=== PATIENT | female | born 1930 | race Caucasian/White ===

== ENCOUNTER 2018-04-27 17:37 | Emergency (ER) | payer MEDICARE ==
[~2018-04-27] VITALS: Wt 50.8 kg
[~2018-04-27 17:37] MED LIST: ARICEPT10 M1 PO; ARICEPT10 MG PO; ARICEPT5 MG PO; ASPIRIN81 M1 PO; ATIVAN0.5 MG PO; BACTRIM DS 8001 TA1 PO; BRIN20TA PO; CALCIUM; CELEXA PO; CELEXA20 MG PO; CELEXA40 MG PO; COLACE100 MG PO; COUMADIN PO; COUMADIN3 M1 PO; COUMADIN4 M1 PO; COUMADIN4 MG PO; COUMADIN5 M2 PO; CYMBALTA30 MG PO; Coumadin2 MG PO; Coumadin2.5 MG PO; D3; DARVOCET N 1001 TAB PO; DILTIAZEM CD120 MG PO; DILTIAZEM HCL30 MG PO; DILTIAZEM PO; DONEPEZIL HCL10 MG PO; DULOXETINE HCL30 MG PO; ELIQUIS5 M1 PO; EXELON9.5 MG/24 T; FISH OIL; FISH OIL 10001000 MG; FISH OIL 10001000 MG PO; FLAGYL250 MG PO; FLAGYL500 MG PO; FLORASTOR250 MG PO; FOSAMAX; FOSAMAX70 MG PO; GINKGO; HALDOL0.5 MG PO; HCA STOOL SOFT100 MG; HEP-FORTE1 CAP PO; LOVASTATIN; LOVASTATIN10 MG PO; MACROBID100 M1 PO; MEGACE40 MG PO; MEGACE400 MG/10 PO; MIRTAZAPINE15 M2 PO; MULTIVITAMIN; NAMENDA-14 PO; NAMENDA-28 PO; OXYBUTYNIN CHLOR5 MG PO; OYSTER SHELL C1 EAC4 PO; PRAVASTATIN SOD10 MG PO; PREMARIN0.625 M1 PO; PRILOSEC20 M1 PO; PYRIDIUM100 MG PO; SEPTDS PO; STOOL SOFTNER; TAB-A-VITE1 TA1 PO; TORADOL10 MG PO; VITAMIN B; VITAMIN D1000 IU; WARFARIN SODIUM3 MG PO; WARFARIN4 MG PO; ZYVOX600 MG PO; [UNRECOGNIZED DRUG - OTHER]; [UNRECOGNIZED DRUG - REMARK]
[2018-04-27] MEDS ORDERED: SALINE NOSE SPR45 ML NAS (19:18)
== END 2018-04-27 20:17 ==
LOC: ED 17:37
DX: R04.0 Epistaxis (principal); I48.91 Unspecified atrial fibrillation; E78.5 Hyperlipidemia, unspecified; M81.0 Age-related osteoporosis without current pathological fracture; Z79.899 Other long term (current) drug therapy

== ENCOUNTER → 2018-07-30 | Outpatient (CLI) | payer MEDICARE ==
[~2018-07-30] MED LIST changes: +SALINE NOSE SPR45 ML NAS
== END ==
LOC: US 04:02
DX: R31.9 Hematuria, unspecified (principal); Z78.0 Asymptomatic menopausal state

== ENCOUNTER 2018-08-30 11:39 | Emergency (ER) | payer MEDICARE ==
[~2018-08-30] VITALS: Ht 165.1 cm; Wt 65.8 kg
[2018-08-30 12:02] LABS: BASO % 0.3 % (0.0-1.0); EOS % 0.4 % (1.0-4.0); HEMATOCRIT 41.4 % (37.0-47.0); HEMOGLOBIN 13.2 g/dl (12.0-16.0); LYMPH # 1.5 10*3/uL (1.3-4.4); LYMPH % 15.5 % (27.0-41.0); MEAN CELL VOLUME 97.4 fl (81.0-99.0); MEAN CORPUSCULAR HGB 31.1 pg (27.0-31.0); MEAN CORPUSCULAR HGB CONC 31.9 g/dl (33.0-37.0); MEAN PLATELET VOLUME 10.4 fl (9.6-12.3); MONO # 0.9 10*3/uL (0.1-1.0); NEUT # 7.3 10*3/uL (2.3-7.9); NEUT % 74.5 % (47.0-73.0); PLATELET COUNT AUTOMATED 222 10*3/uL (130-400); RED BLOOD COUNT 4.25 10*6/uL (4.10-5.10); RED CELL DISTRI WIDTH 15.8 % (0-14.5); WHITE BLOOD COUNT 9.8 10*3/uL (4.8-10.8)
[2018-08-30 12:18] LABS: ALBUMIN 3.6 gm/dl (3.1-4.5); ALKALINE PHOSPHATASE 101 U/L (45-117); BUN 15 mg/dl (7-24); CHLORIDE 110 mmol/L (98-107); CREATININE 0.96 mg/dL (0.55-1.02); POTASSIUM 4.1 mmol/L (3.5-5.1); SGOT/AST 23 IU/L (3-35); SGPT/ALT 24 U/L (12-78); SODIUM 143 mmol/L (136-145); TOTAL PROTEIN 6.9 gm/dL (6.4-8.2)
[2018-08-30 13:12] LABS: BILIRUBIN NEGATIVE (NEGATIVE); BLOOD NEGATIVE (NEGATIVE); CLARITY SL CLOUDY (CLEAR); COLOR YELLOW (YELLOW); GLUCOSE NEGATIVE (NEGATIVE); KETONE 1+ (NEGATIVE); LEUKO ESTERASE TRACE (NEGATIVE); NITRITE NEGATIVE (NEGATIVE); UROBILINOGEN 0.2 E.U./dl (0.2-1.0)
[2018-08-30 13:39] LABS: BACTERIA 2+; WBC 41-50 wbc/hpf (0-5)
[2018-08-30] MEDS ORDERED: SEPTDS PO (14:11)
== END 2018-08-30 14:36 ==
LOC: ED 11:39
PROVIDERS: Emergency Medicine; Family Medicine
DX: N39.0 Urinary tract infection, site not specified (principal); R41.82 Altered mental status, unspecified; I48.91 Unspecified atrial fibrillation; E78.5 Hyperlipidemia, unspecified; M81.0 Age-related osteoporosis without current pathological fracture; F03.90 Unspecified dementia, unspecified severity, without behavioral disturbance, psychotic disturbance, mood disturbance, and anxiety; Z79.899 Other long term (current) drug therapy

== ENCOUNTER 2018-12-30 14:57 | Emergency (ER) | payer MEDICARE ==
[~2018-12-30] VITALS: Ht 154.9 cm; Wt 49.9 kg
== END 2018-12-30 16:29 | disposition other institution (70) ==
LOC: ED 14:57
DX: R04.0 Epistaxis (principal); I48.91 Unspecified atrial fibrillation; I25.10 Atherosclerotic heart disease of native coronary artery without angina pectoris; I10 Essential (primary) hypertension; Z79.2 Long term (current) use of antibiotics; Z79.899 Other long term (current) drug therapy

== ENCOUNTER 2019-05-17 18:08 | Inpatient (IN) | payer MEDICARE ==
[~2019-05-17] VITALS: Ht 154.9 cm; Wt 40.0 kg
[2019-05-17 18:09] VITALS: BP 145/82
[2019-05-17 19:06] LABS: BASO % 0.6 % (0.0-1.0); EOS % 0.4 % (1.0-4.0); HEMATOCRIT 33.7 % (37.0-47.0); HEMOGLOBIN 10.8 g/dl (12.0-16.0); LYMPH # 1.8 10*3/uL (1.3-4.4); LYMPH % 26.5 % (27.0-41.0); MEAN CORPUSCULAR HGB 30.8 pg (27.0-31.0); MEAN PLATELET VOLUME 10.2 fl (9.6-12.3); MONO # 0.9 10*3/uL (0.1-1.0); MONO % 13.6 % (3.0-9.0); NEUT % 58.8 % (47.0-73.0); PLATELET COUNT AUTOMATED 181 10*3/uL (130-400); RED BLOOD COUNT 3.51 10*6/uL (4.10-5.10); RED CELL DISTRI WIDTH 18.6 % (0-14.5); WHITE BLOOD COUNT 6.8 10*3/uL (4.8-10.8)
[2019-05-17 19:17] LABS: ACT PARTIAL THROMBO TIME 25.2 SECONDS (20.0-32.1); INTERNATIONAL NORM RATIO 1.1 (2.0-3.5)
--- NOTE | 2019-05-17 19:17 | NUR ---
REPORT RECEIVED FROM JAILENE
[2019-05-17 19:22] LABS: ALBUMIN 3.3 gm/dl (3.1-4.5); CREATININE 1.13 mg/dL (0.55-1.02); POTASSIUM 3.7 mmol/L (3.5-5.1); TOTAL PROTEIN 6.1 gm/dL (6.4-8.2)
[2019-05-17 19:23] LABS: TROPONIN I 0.017 ng/ml (<0.045)
[2019-05-17 20:27] VITALS: BP 133/76
--- NOTE | 2019-05-17 20:54 | NUR ---
A 88, admitted to , under the services of MONIE Becerril MD with a diagnosis of GENERALIZED WEAKNESS. Chief complaint is WEAKNESS. Patient arrived via bed from ER. Monitor applied. Initial assessment completed. Vital signs taken and recorded. MONIE BECERRIL MD notified of admission to the unit. Orders received. See assessment for past medical history, medications and allergies. Patient and/or family oriented to unit. [address] visitation policy reviewed. Clothing/patient valuable form completed. MATT PHAM
[2019-05-17] MEDS ORDERED: CARVEDILOL3.125 MG PO (21:01)
[2019-05-17] MEDS ORDERED: VITAMIN D5000 UNI1 PO (21:02)
[2019-05-17] MEDS ORDERED: MEGACE 40400 MG/10 PO (21:06)
[2019-05-17] MEDS ORDERED: TYLENOL325 M1 PO (21:07)
[2019-05-17] MEDS ORDERED: RIVASTIGMINE TAR3 M1 PO (21:07)
[2019-05-17] MEDS ORDERED: MILK OF MA400 MG/5 M PO (21:09)
--- NOTE | 2019-05-17 21:15 | NUR ---
DR. SCOTT NOTIFIED OF COMPLETE MED REC.
[2019-05-17 21:26] LABS: BILIRUBIN NEGATIVE (NEGATIVE); BLOOD TRACE-LYSED (NEGATIVE); CLARITY CLEAR (CLEAR); COLOR YELLOW (YELLOW); GLUCOSE NEGATIVE (NEGATIVE); KETONE NEGATIVE (NEGATIVE); LEUKO ESTERASE 1+ (NEGATIVE); NITRITE NEGATIVE (NEGATIVE); UROBILINOGEN 0.2 E.U./dl (0.2-1.0)
[2019-05-17 21:42] LABS: BACTERIA 4+; EPITHELIAL CELLS 0-2; WBC 31-40 wbc/hpf (0-5)
[2019-05-18] VITALS: BP 156/62
--- NOTE | 2019-05-18 06:31 | NUR ---
STACY GREEN [id number] Please refer to the physician's history and physical for past medical history, comorbid conditions, and allergies. Diagnosis: GENERALIZED WEAKNESS Angus Score: 15,AT RISK WOUND DESCRIPTIONS: Entire buttocks is red and blanchable at time of assessment. No open areas noted at time of assessment. No drainage noted at time of assessment. Bilateral heels are red and blanchable at time of assessment. No open areas at time of assessment. No drainage noted at time of assessment. Surface the patient is resting on: Isoflex SKIN PREVENTION RECOMMENDATION: 1. Pressure redistribution support surface as appropriate 2. Elevate heels 3. Remove boots/TEDS every shift and reapply 4. Head of bed 30 degrees as tolerated 5. Assess nutrition and hydration 6. Manage moisture 7. Avoid the use of containment devices while in bed 8. Use absorptive products on surfaces limit layers of linens on bed 9. Turn and reposition every 1-2 hours in bed and every 1 hour in chair as tolerated 10. Weight shifts every 15 minutes while up in chair 11. Offloading with pillows or device to keep heels elevated off bed 12. Monitor skin at least every shift 13. Inspect under medical devices twice a day WOUND TREATMENT RECOMMENDATIONS: Heel raiser pro boots to bilateral heels while in bed. Wheelchair cushion when oob. Cleanse entire buttocks with soap and water pat dry then apply hydraguard every shift and prn for soiling then apply optifoam gentle for protection.
--- NOTE | 2019-05-18 06:55 | NUR ---
CALL OUT TO DR KENNY. AWAITING CALL BACK.
[2019-05-18 08:00] VITALS: BP 123/78
--- NOTE | 2019-05-18 08:28 | NUR ---
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 -MARY Correa
--- NOTE | 2019-05-18 10:00 | NUR ---
Clip On Sunglasses Assembler in to see patient. She is a LTC resident at [facility]. She gets up and around in a wheelchair. Family at the bedside is concerned about her not getting a diet. Notified Dr. Barber regarding diet order. Awaiting return call. When medically stable she will be discharged to [facility]. social worker aide following.
--- NOTE | 2019-05-18 10:40 | NUR ---
Spoke to Dr. Barber regarding diet order. New orders received for Regular diet. Informed patient and family. Notified nurse.
--- NOTE | 2019-05-18 10:40 | NUR ---
Occupational Therapy evaluation completed on 5 with full eval to follow. Precautions include fall risk,generalized weakness,impaired memory, moderate complexity level 94799 via chart review,testing and evaluation. Recommend OT per POC and return to Ltc upon d/c. Thank you. Evita Ballard OTR/L
[2019-05-18 12:00] VITALS: BP 116/79
[2019-05-18 16:00] VITALS: BP 116/60
--- NOTE | 2019-05-18 16:30 | NUR ---
Nursing screen completed and Occupational Therapy referral received. Thank you. Evita Ballard OTR/L
--- NOTE | 2019-05-18 18:12 | NUR ---
PHYSICAL THERAPY PT EVAL COMPLETED TODAY ON LEVEL 5: FULL EVALUATION TO FOLLOW. RECOMMEND PT WHILE HERE TO ADDRESS DECREASED FUNCTIONAL MOBILITY AND STRENGTH. PATIENT IS A RESIDENT OF [facility] WHERE SHE IS AMBULATORY WITH [facility] WITH STAFF SUPERVISION AND SELF PROPELS W/C ON HER OWN THROUGHOUT FACILITY. PT EVAL IS MODERATE COMPLEXITY: 95516, D.C RECOMMENDATIONS WOULD BE TO RETURN TO [facility] AND BASED ON HOW SHE DOES HERE MAY BENEFIT FROM SHORT TERM SNF TO REGAIN HIGHEST LEVEL OF FUNCTIONAL MOBILTY AND RETURN TO PLOF. THANK YOU FOR REFERRAL BABAK JURADO PT
[2019-05-18 20:00] VITALS: BP 118/53
[2019-05-19] VITALS: BP 111/55
--- NOTE | 2019-05-19 04:06 | NUR ---
Upon discharge recommend patient to follow up for wound care in outpatient setting continue current wound care orders at discharging facility.
[2019-05-19 08:00] VITALS: BP 142/78
--- NOTE | 2019-05-19 08:30 | NUR ---
Mica Inspector in to see patient. No new needs or request at this time. When medically stable she will be discharged to [facility] where she is a LTC resident. transit survey worker following.
[2019-05-19] MEDS ORDERED: CARVEDILOL6.25 MG PO (09:05)
[2019-05-19] MEDS ORDERED: Lanoxin PO (09:05)
[2019-05-19] MEDS ORDERED: CEFUROXIME AXE250 MG PO (09:22)
--- NOTE | 2019-05-19 11:08 | NUR ---
HOUSE PAINTER received notice the patient is being discharged. HOUSE PAINTER spoke with patients daughter who is at the bedside. She stated she would like the patient to be transported via Ambulance. HOUSE PAINTER spoke with [facility]. HOUSE PAINTER reached out to [facility] who stated they would be able to transport the patient at 1pm back to [facility]. HOUSE PAINTER notified [facility] and [facility] about of 1pm pickup. HOUSE PAINTER faxed [facility] updates and discharge orders. -MARY Correa
--- NOTE | 2019-05-19 12:59 | NUR ---
Attempted to call report to [facility], transferred to an answering machine. Call back number left.
--- NOTE | 2019-05-19 13:26 | NUR ---
[facility] here to pepper picker pt. Attempting to call report again to [facility]. Spoke with nurse there and report was given.
--- NOTE | 2019-05-19 13:30 | NUR ---
Discharged in care of [facility]. Daughter present at tn.
== END 2019-05-19 13:30 | DRG 309 ==
LOC: ED 18:08 → EDHOLD 19:35 → 5E 19:35
PROVIDERS: Emergency Medicine; ADMIT Internal Medicine
DX: I48.21 Permanent atrial fibrillation (principal); Z68.1 Body mass index [BMI] 19.9 or less, adult; I10 Essential (primary) hypertension; R62.7 Adult failure to thrive; J44.9 Chronic obstructive pulmonary disease, unspecified; R55 Syncope and collapse; G30.1 Alzheimer's disease with late onset; F02.80 Dementia in other diseases classified elsewhere, unspecified severity, without behavioral disturbance, psychotic disturbance, mood disturbance, and anxiety; F32.9 Major depressive disorder, single episode, unspecified; E78.5 Hyperlipidemia, unspecified; M81.0 Age-related osteoporosis without current pathological fracture; Z87.440 Personal history of urinary (tract) infections; Z82.49 Family history of ischemic heart disease and other diseases of the circulatory system; Z82.0 Family history of epilepsy and other diseases of the nervous system

== ENCOUNTER 2019-06-05 23:16 | Emergency (ER) | payer MEDICARE ==
[~2019-06-05] VITALS: Ht 157.4 cm; Wt 41.1 kg
[~2019-06-05 23:16] MED LIST changes: +CARVEDILOL3.125 MG PO; +CARVEDILOL6.25 MG PO; +CEFUROXIME AXE250 MG PO; +Lanoxin PO; +MEGACE 40400 MG/10 PO; +MILK OF MA400 MG/5 M PO; +RIVASTIGMINE TAR3 M1 PO; +TYLENOL325 M1 PO; +VITAMIN D5000 UNI1 PO
[2019-06-05 23:53] LABS: ACT PARTIAL THROMBO TIME 24.2 SECONDS (20.0-32.1); INTERNATIONAL NORM RATIO 1.1 (2.0-3.5)
[2019-06-05 23:55] LABS: CREATININE 1.22 mg/dL (0.55-1.02); POTASSIUM 3.9 mmol/L (3.5-5.1)
[2019-06-06 00:21] LABS: BASO # 0.1 10*3/uL (0.0-0.1); BASO % 0.7 % (0.0-1.0); EOS # 0.1 10*3/uL (0.0-0.4); EOS % 0.8 % (1.0-4.0); HEMATOCRIT 34.6 % (37.0-47.0); HEMOGLOBIN 10.6 g/dl (12.0-16.0); LYMPH # 1.7 10*3/uL (1.3-4.4); LYMPH % 21.9 % (27.0-41.0); MEAN CELL VOLUME 96.9 fl (81.0-99.0); MEAN CORPUSCULAR HGB 29.7 pg (27.0-31.0); MEAN CORPUSCULAR HGB CONC 30.6 g/dl (33.0-37.0); MEAN PLATELET VOLUME 11.3 fl (9.6-12.3); NEUT # 4.8 10*3/uL (2.3-7.9); NEUT % 62.4 % (47.0-73.0); PLATELET COUNT AUTOMATED 156 10*3/uL (130-400); RED BLOOD COUNT 3.57 10*6/uL (4.10-5.10); RED CELL DISTRI WIDTH 18.2 % (0-14.5); WHITE BLOOD COUNT 7.6 10*3/uL (4.8-10.8)
== END 2019-06-06 02:00 | disposition other institution (70) ==
LOC: ED 23:16
PROVIDERS: Emergency Medicine Emergency Medical Services
DX: R04.0 Epistaxis (principal); E87.0 Hyperosmolality and hypernatremia; I48.91 Unspecified atrial fibrillation; I10 Essential (primary) hypertension; E78.5 Hyperlipidemia, unspecified; M81.0 Age-related osteoporosis without current pathological fracture; I25.10 Atherosclerotic heart disease of native coronary artery without angina pectoris; Z79.899 Other long term (current) drug therapy

== ENCOUNTER 2019-07-13 21:55 | Inpatient (IN) | payer MEDICARE ==
[~2019-07-13] VITALS: Ht 167.6 cm; Wt 41.9 kg
[2019-07-13 22:02] VITALS: BP 131/36
[2019-07-13 22:27] LABS: BASO # 0.1 10*3/uL (0.0-0.1); BASO % 0.5 % (0.0-1.0); EOS # 0.1 10*3/uL (0.0-0.4); EOS % 1.5 % (1.0-4.0); HEMATOCRIT 26.6 % (37.0-47.0); LYMPH # 2.2 10*3/uL (1.3-4.4); LYMPH % 24.2 % (27.0-41.0); MEAN CORPUSCULAR HGB 28.6 pg (27.0-31.0); MEAN CORPUSCULAR HGB CONC 30.1 g/dl (33.0-37.0); MEAN PLATELET VOLUME 11.4 fl (9.6-12.3); MONO # 1.1 10*3/uL (0.1-1.0); MONO % 11.6 % (3.0-9.0); NEUT # 5.7 10*3/uL (2.3-7.9); NEUT % 61.4 % (47.0-73.0); NUCLEATED RED BLOOD CELL 0.3 % (0.0-0.0); PLATELET COUNT AUTOMATED 247 10*3/uL (130-400); RED CELL DISTRI WIDTH 17.8 % (0-14.5); WHITE BLOOD COUNT 9.2 10*3/uL (4.8-10.8)
[2019-07-13 22:38] LABS: ACT PARTIAL THROMBO TIME 22.5 SECONDS (20.0-32.1)
[2019-07-13 22:42] LABS: ALBUMIN 3.1 gm/dl (3.1-4.5); CREATININE 1.46 mg/dL (0.55-1.02); POTASSIUM 5.3 mmol/L (3.5-5.1); TOTAL PROTEIN 6.2 gm/dL (6.4-8.2)
[2019-07-14 00:20] VITALS: BP 149/99
--- NOTE | 2019-07-14 00:20 | NUR ---
DNR-CCA AN 88 YEAR OLD FEMALE, admitted to 5E, under the services of MONIE Becerril MD with a diagnosis of ANEMIA/DEHYDRATION. Chief complaint is EPITAXIS. Patient arrived via stretcher from ER. Monitor applied. Initial assessment completed. Vital signs taken and recorded. MONIE BECERRIL MD notified of admission to the unit. Orders received. See assessment for past medical history, medications and allergies. Patient and/or family oriented to unit. visitation policy reviewed. Clothing/patient valuable form completed. DOMINIC WHITE
--- NOTE | 2019-07-14 00:45 | NUR ---
DR. ONEAL CONTACTED AND ADMISSION ORDERS OBTAINED.
[2019-07-14] MEDS ORDERED: MARINOL5 MG PO (00:59)
[2019-07-14] MEDS ORDERED: DRONABINOL2.5 MG PO (01:01)
[2019-07-14] MEDS ORDERED: LANOXIN250 MCG PO (01:02)
[2019-07-14] MEDS ORDERED: COREG6.25 MG PO (01:23)
[2019-07-14] MEDS ORDERED: VITAMIN D5000 UNI1 PO (01:25)
[2019-07-14] MEDS ORDERED: NASAL SPRAY30 M1 NAS (01:43)
[2019-07-14] MEDS ORDERED: TYLENOL325 M1 PO (01:44)
[2019-07-14] MEDS ORDERED: RIVASTIGMINE TAR3 M1 PO (01:45)
[2019-07-14] MEDS ORDERED: ELIQUIS2.5 M1 PO (01:45)
[2019-07-14] MEDS ORDERED: REMERON15 M2 PO (01:46)
[2019-07-14] MEDS ORDERED: MILK OF MA400 MG/5 M PO (01:46)
[2019-07-14] MEDS ORDERED: OYSTER SHELL C1 EAC4 PO (01:47)
[2019-07-14] MEDS ORDERED: DITROPAN XL5 MG PO (01:47)
[2019-07-14] MEDS ORDERED: ALENDRONATE SOD70 M1 PO (01:49)
[2019-07-14] MEDS ORDERED: PRAVASTATIN SOD10 MG PO (01:49)
[2019-07-14] MEDS ORDERED: CARDIOVID PLUS1 EACH PO (01:51)
[2019-07-14] MEDS ORDERED: PRILOSEC20 M1 PO (01:51)
[2019-07-14] MEDS ORDERED: TAB-A-VITE1 EACH PO (01:51)
[2019-07-14] MEDS ORDERED: NAMENDA-28 PO (01:52)
[2019-07-14 08:00] VITALS: BP 124/54
--- NOTE | 2019-07-14 08:05 | NUR ---
PHYSICAL THERAPY Screen received pt from [facility], please consult Physical Therapy if decline in functional status from baseline, thank you Radha Gallego PT
--- NOTE | 2019-07-14 08:52 | NUR ---
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 -MARY Correa
--- NOTE | 2019-07-14 09:00 | NUR ---
Roll Up Machine Operator in to see patient. She is a LTC resident at [facility]. She gets up and around in a wheelchair. She states she is cold and tired. Covered with blankets. When medically stable she will be discharged to [facility]. hand worker following.
[2019-07-14 10:52] LABS: FERRITIN 15.9 ng/mL (10.0-291.0)
--- NOTE | 2019-07-14 11:54 | NUR ---
Nursing screen receieved and chart reviewed. If patient has a decline in ADLs and functional mobility/transfers, please send OT orders. Thank you. Beena Fung, OTR/L
--- NOTE | 2019-07-14 14:07 | NUR ---
SPEECH PATHOLOGY Nursing screen completed. This dept. will be available if needs arise. There are currently no reports of acute communication or swallowing difficulty. CHASE SAL [facility]-POLE LIFT OPERATOR
[2019-07-14 16:00] VITALS: BP 144/56
[2019-07-14 20:00] VITALS: BP 138/43
[2019-07-15 06:42] LABS: BASO % 0.5 % (0.0-1.0); EOS # 0.2 10*3/uL (0.0-0.4); EOS % 2.3 % (1.0-4.0); HEMATOCRIT 23.9 % (37.0-47.0); HEMOGLOBIN 7.2 g/dl (12.0-16.0); LYMPH # 2.2 10*3/uL (1.3-4.4); LYMPH % 28.1 % (27.0-41.0); MEAN CELL VOLUME 92.3 fl (81.0-99.0); MEAN CORPUSCULAR HGB 27.8 pg (27.0-31.0); MEAN CORPUSCULAR HGB CONC 30.1 g/dl (33.0-37.0); MEAN PLATELET VOLUME 10.9 fl (9.6-12.3); MONO # 1.1 10*3/uL (0.1-1.0); MONO % 13.8 % (3.0-9.0); NEUT # 4.2 10*3/uL (2.3-7.9); NEUT % 54.8 % (47.0-73.0); PLATELET COUNT AUTOMATED 224 10*3/uL (130-400); RED BLOOD COUNT 2.59 10*6/uL (4.10-5.10); RED CELL DISTRI WIDTH 17.5 % (0-14.5); WHITE BLOOD COUNT 7.7 10*3/uL (4.8-10.8)
[2019-07-15 06:59] LABS: CHLORIDE 119 mmol/L (98-107); SODIUM 146 mmol/L (136-145)
[2019-07-15 07:01] LABS: CREATININE 0.89 mg/dL (0.55-1.02)
[2019-07-15 07:04] LABS: BUN 20 mg/dl (7-24); POTASSIUM 4.1 mmol/L (3.5-5.1)
[2019-07-15 08:00] VITALS: BP 140/58
--- NOTE | 2019-07-15 08:15 | NUR ---
Discussed discharge planning with Dr. Barber. Plan is to discharge patient to [facility] today where she is a LTC resident. machine worker following.
[2019-07-15] MEDS ORDERED: FERROUS SULFAT324 M2 PO (08:52)
--- NOTE | 2019-07-15 10:31 | NUR ---
DAUGHTER AT BEDSIDE, AWARE PATIENT GOING BACK TO [facility] TODAY.
--- NOTE | 2019-07-15 11:29 | NUR ---
MAINTAINABILITY ENGINEER was notified of patient being discharged. MAINTAINABILITY ENGINEER spoke with MIKAYLA Porras. MAINTAINABILITY ENGINEER spoke with Mike Chauhan and scheduled a 12:30pm transport for the patient to return to [facility]. MAINTAINABILITY ENGINEER notified [facility]. MAINTAINABILITY ENGINEER spoke with patients daughter at bedside about transport scheduled. MAINTAINABILITY ENGINEER then received notice from MIKAYLA Porras that the patient was experiencing pain and that the patients discharged was on hold. MAINTAINABILITY ENGINEER contacted [place] back and cancelled the transport. MAINTAINABILITY ENGINEER notified [facility] of the change of events. Patients daughter is at bedside still and is aware of the change in events as well. -MARY Correa
[2019-07-15] MEDS ORDERED: COLACE100 MG PO (13:59)
[2019-07-15] MEDS ORDERED: MIRALAX17 GM PO (13:59)
[2019-07-15 16:00] VITALS: BP 139/57
--- NOTE | 2019-07-15 16:36 | NUR ---
CALLED DAUGHTER AND MADE AWARE THAT PATIENT WILL BE DISCHARGED HOME TODAY AT [address]. [address] OF [address] RESULTS AND NO MORE COMPLAIN OF ABDOMINAL PAIN
--- NOTE | 2019-07-15 17:10 | NUR ---
PT PICKED UP BY [facility]. SENT TO [facility] WITH BELONGINGS.
--- NOTE | 2019-07-15 17:13 | NUR ---
REPORT CALLED TO [facility]
--- NOTE | 2019-07-15 17:30 | NUR ---
DISCHARGE INSTRUCTIONS SENT WITH PATIENT TO [facility]
== END 2019-07-15 17:10 | DRG 683 ==
LOC: ED 21:55 → 5E 22:59 → EDHOLD 22:59 → 5E 23:27
PROVIDERS: Physician Assistant; ADMIT Internal Medicine
DX: N17.9 Acute kidney failure, unspecified (principal); I48.21 Permanent atrial fibrillation; Z68.1 Body mass index [BMI] 19.9 or less, adult; R04.0 Epistaxis; E86.0 Dehydration; I10 Essential (primary) hypertension; Z66 Do not resuscitate; Z51.5 Encounter for palliative care; R62.7 Adult failure to thrive; D50.9 Iron deficiency anemia, unspecified; G30.1 Alzheimer's disease with late onset; F02.80 Dementia in other diseases classified elsewhere, unspecified severity, without behavioral disturbance, psychotic disturbance, mood disturbance, and anxiety; E87.5 Hyperkalemia; R00.1 Bradycardia, unspecified; E78.5 Hyperlipidemia, unspecified; M81.0 Age-related osteoporosis without current pathological fracture; Z87.440 Personal history of urinary (tract) infections; Z79.01 Long term (current) use of anticoagulants; Z82.49 Family history of ischemic heart disease and other diseases of the circulatory system; Z82.0 Family history of epilepsy and other diseases of the nervous system

== ENCOUNTER 2019-08-08 11:49 | Emergency (ER) | payer MEDICARE ==
[~2019-08-08 11:49] MED LIST changes: +ALENDRONATE SOD70 M1 PO; +CARDIOVID PLUS1 EACH PO; +COREG6.25 MG PO; +DITROPAN XL5 MG PO; +DRONABINOL2.5 MG PO; +ELIQUIS2.5 M1 PO; +FERROUS SULFAT324 M2 PO; +LANOXIN250 MCG PO; +MARINOL5 MG PO; +MIRALAX17 GM PO; +NASAL SPRAY30 M1 NAS; +REMERON15 M2 PO; +TAB-A-VITE1 EACH PO
[2019-08-08 13:01] LABS: BASO # 0.1 10*3/uL (0.0-0.1); BASO % 0.6 % (0.0-1.0); EOS % 0.5 % (1.0-4.0); HEMATOCRIT 34.5 % (37.0-47.0); HEMOGLOBIN 10.4 g/dl (12.0-16.0); LYMPH # 1.2 10*3/uL (1.3-4.4); MEAN CELL VOLUME 98.6 fl (81.0-99.0); MEAN CORPUSCULAR HGB 29.7 pg (27.0-31.0); MEAN CORPUSCULAR HGB CONC 30.1 g/dl (33.0-37.0); MEAN PLATELET VOLUME 10.1 fl (9.6-12.3); MONO # 0.6 10*3/uL (0.1-1.0); MONO % 7.8 % (3.0-9.0); NEUT # 5.9 10*3/uL (2.3-7.9); NEUT % 75.7 % (47.0-73.0); PLATELET COUNT AUTOMATED 220 10*3/uL (130-400); RED CELL DISTRI WIDTH 21.7 % (0-14.5); WHITE BLOOD COUNT 7.8 10*3/uL (4.8-10.8)
[2019-08-08 13:12] LABS: ACT PARTIAL THROMBO TIME 25.9 SECONDS (20.0-32.1); INTERNATIONAL NORM RATIO 1.1 (2.0-3.5)
[2019-08-08 13:17] LABS: ALBUMIN 3.1 gm/dl (3.1-4.5); ALKALINE PHOSPHATASE 84 U/L (45-117); BUN 18 mg/dl (7-24); CHLORIDE 113 mmol/L (98-107); POTASSIUM 4.1 mmol/L (3.5-5.1); SGOT/AST 21 IU/L (3-35); SGPT/ALT 17 U/L (12-78); SODIUM 145 mmol/L (136-145); TOTAL PROTEIN 6.1 gm/dL (6.4-8.2)
[2019-08-08 15:27] LABS: BILIRUBIN NEGATIVE (NEGATIVE); BLOOD NEGATIVE (NEGATIVE); CLARITY CLEAR (CLEAR); COLOR YELLOW (YELLOW); GLUCOSE NEGATIVE (NEGATIVE); KETONE TRACE (NEGATIVE); LEUKO ESTERASE NEGATIVE (NEGATIVE); NITRITE NEGATIVE (NEGATIVE); PH 6.5 (5.0-9.0); UROBILINOGEN 0.2 E.U./dl (0.2-1.0)
[2019-08-08 15:37] LABS: BACTERIA 1+
== END 2019-08-08 16:17 | disposition home or self-care (01) ==
LOC: ED 11:49
PROVIDERS: Emergency Medicine
DX: R04.0 Epistaxis (principal); K92.1 Melena; R53.1 Weakness; R30.0 Dysuria; I48.91 Unspecified atrial fibrillation; F03.90 Unspecified dementia, unspecified severity, without behavioral disturbance, psychotic disturbance, mood disturbance, and anxiety; I10 Essential (primary) hypertension; I25.10 Atherosclerotic heart disease of native coronary artery without angina pectoris; E78.5 Hyperlipidemia, unspecified; M81.0 Age-related osteoporosis without current pathological fracture; Z79.899 Other long term (current) drug therapy

== ENCOUNTER 2019-08-21 11:50 | Emergency (ER) | payer MEDICARE ==
[~2019-08-21] VITALS: Wt 39.9 kg
[2019-08-21 13:13] LABS: BASO # 0.1 10*3/uL (0.0-0.1); BASO % 0.8 % (0.0-1.0); EOS # 0.1 10*3/uL (0.0-0.4); EOS % 1.7 % (1.0-4.0); HEMATOCRIT 34.2 % (37.0-47.0); HEMOGLOBIN 10.2 g/dl (12.0-16.0); LYMPH # 1.7 10*3/uL (1.3-4.4); LYMPH % 26.3 % (27.0-41.0); MEAN CELL VOLUME 99.7 fl (81.0-99.0); MEAN CORPUSCULAR HGB 29.7 pg (27.0-31.0); MEAN CORPUSCULAR HGB CONC 29.8 g/dl (33.0-37.0); MEAN PLATELET VOLUME 9.7 fl (9.6-12.3); MONO # 0.9 10*3/uL (0.1-1.0); NEUT # 3.8 10*3/uL (2.3-7.9); NEUT % 57.7 % (47.0-73.0); PLATELET COUNT AUTOMATED 189 10*3/uL (130-400); RED BLOOD COUNT 3.43 10*6/uL (4.10-5.10); RED CELL DISTRI WIDTH 21.8 % (0-14.5); WHITE BLOOD COUNT 6.5 10*3/uL (4.8-10.8)
== END 2019-08-21 15:00 | disposition home or self-care (01) ==
LOC: ED 11:50
PROVIDERS: Internal Medicine
DX: R04.0 Epistaxis (principal); R42 Dizziness and giddiness; R41.840 Attention and concentration deficit; I10 Essential (primary) hypertension; I48.91 Unspecified atrial fibrillation; F03.90 Unspecified dementia, unspecified severity, without behavioral disturbance, psychotic disturbance, mood disturbance, and anxiety; E78.5 Hyperlipidemia, unspecified; I25.10 Atherosclerotic heart disease of native coronary artery without angina pectoris; M81.0 Age-related osteoporosis without current pathological fracture; Z79.899 Other long term (current) drug therapy

== ENCOUNTER 2019-09-07 02:07 | Emergency (ER) | payer MEDICARE ==
[~2019-09-07] VITALS: Ht 165.1 cm; Wt 59.0 kg
== END 2019-09-07 02:30 | disposition home or self-care (01) ==
LOC: ED 02:07
DX: R04.0 Epistaxis (principal); I25.10 Atherosclerotic heart disease of native coronary artery without angina pectoris; I10 Essential (primary) hypertension; I48.91 Unspecified atrial fibrillation; E78.5 Hyperlipidemia, unspecified; M81.0 Age-related osteoporosis without current pathological fracture; Z79.899 Other long term (current) drug therapy

== ENCOUNTER 2019-09-30 07:34 | Emergency (ER) | payer MEDICARE ==
[~2019-09-30] VITALS: Ht 154.9 cm; Wt 49.0 kg
[2019-09-30 08:13] LABS: BASO # 0.1 10*3/uL (0.0-0.1); BASO % 0.7 % (0.0-1.0); EOS # 0.1 10*3/uL (0.0-0.4); HEMATOCRIT 29.3 % (37.0-47.0); HEMOGLOBIN 8.9 g/dl (12.0-16.0); LYMPH # 1.7 10*3/uL (1.3-4.4); LYMPH % 24.1 % (27.0-41.0); MEAN CELL VOLUME 102.1 fl (81.0-99.0); MEAN CORPUSCULAR HGB CONC 30.4 g/dl (33.0-37.0); MEAN PLATELET VOLUME 10.4 fl (9.6-12.3); MONO % 14.6 % (3.0-9.0); NEUT % 58.3 % (47.0-73.0); PLATELET COUNT AUTOMATED 223 10*3/uL (130-400); RED BLOOD COUNT 2.87 10*6/uL (4.10-5.10); RED CELL DISTRI WIDTH 20.1 % (0-14.5); WHITE BLOOD COUNT 6.9 10*3/uL (4.8-10.8)
[2019-09-30 08:23] LABS: ACT PARTIAL THROMBO TIME 24.5 SECONDS (20.0-32.1); INTERNATIONAL NORM RATIO 1.1 (2.0-3.5)
[2019-09-30 08:29] LABS: ALBUMIN 2.9 gm/dl (3.1-4.5); ALKALINE PHOSPHATASE 97 U/L (45-117); BUN 22 mg/dl (7-24); CHLORIDE 113 mmol/L (98-107); CREATININE 0.82 mg/dL (0.55-1.02); SGOT/AST 22 IU/L (3-35); SGPT/ALT 27 U/L (12-78); SODIUM 145 mmol/L (136-145); TOTAL PROTEIN 5.5 gm/dL (6.4-8.2)
[2019-09-30] MEDS ORDERED: AFRIN 15 ML15 M1 NAS (10:08)
== END 2019-09-30 10:19 | disposition home or self-care (01) ==
LOC: ED 07:34
PROVIDERS: Emergency Medicine
DX: R04.0 Epistaxis (principal); D64.9 Anemia, unspecified; R42 Dizziness and giddiness; I25.10 Atherosclerotic heart disease of native coronary artery without angina pectoris; I10 Essential (primary) hypertension; E78.5 Hyperlipidemia, unspecified; M81.0 Age-related osteoporosis without current pathological fracture; I48.91 Unspecified atrial fibrillation; Z79.899 Other long term (current) drug therapy

== ENCOUNTER 2019-11-08 10:38 | Inpatient (IN) | payer MEDICARE ==
[~2019-11-08] VITALS: Ht 157.4 cm; Wt 39.1 kg
[~2019-11-08 10:38] MED LIST changes: +AFRIN 15 ML15 M1 NAS
[2019-11-08 10:41] VITALS: BP 141/81
[2019-11-08 11:23] LABS: BASO # 0.1 10*3/uL (0.0-0.1); BASO % 0.6 % (0.0-1.0); EOS # 0.1 10*3/uL (0.0-0.4); EOS % 1.4 % (1.0-4.0); HEMATOCRIT 44.3 % (37.0-47.0); HEMOGLOBIN 13.6 g/dl (12.0-16.0); LYMPH # 1.3 10*3/uL (1.3-4.4); LYMPH % 13.8 % (27.0-41.0); MEAN CELL VOLUME 98.7 fl (81.0-99.0); MEAN CORPUSCULAR HGB 30.3 pg (27.0-31.0); MEAN CORPUSCULAR HGB CONC 30.7 g/dl (33.0-37.0); MONO # 1.3 10*3/uL (0.1-1.0); MONO % 13.6 % (3.0-9.0); NEUT # 6.6 10*3/uL (2.3-7.9); NEUT % 69.6 % (47.0-73.0); PLATELET COUNT AUTOMATED 289 10*3/uL (130-400); RED BLOOD COUNT 4.49 10*6/uL (4.10-5.10); RED CELL DISTRI WIDTH 17.3 % (0-14.5); WHITE BLOOD COUNT 9.5 10*3/uL (4.8-10.8)
[2019-11-08 11:39] LABS: ALBUMIN 3.1 gm/dl (3.1-4.5); CREATININE 1.24 mg/dL (0.55-1.02); POTASSIUM 4.1 mmol/L (3.5-5.1); TROPONIN I 0.016 ng/ml (<0.045)
[2019-11-08 11:43] LABS: BILIRUBIN NEGATIVE (NEGATIVE); BLOOD NEGATIVE (NEGATIVE); CLARITY SL CLOUDY (CLEAR); COLOR YELLOW (YELLOW); GLUCOSE NEGATIVE (NEGATIVE); KETONE NEGATIVE (NEGATIVE); LEUKO ESTERASE NEGATIVE (NEGATIVE); NITRITE NEGATIVE (NEGATIVE); SPECIFIC GRAVITY 1.015 (1.005-1.030); UROBILINOGEN 0.2 E.U./dl (0.2-1.0)
[2019-11-08 11:46] LABS: ACT PARTIAL THROMBO TIME 25.4 SECONDS (20.0-32.1)
[2019-11-08 11:52] LABS: BACTERIA 3+; MUCOUS 2+
[2019-11-08 12:36] VITALS: BP 148/86
[2019-11-08 14:30] VITALS: BP 137/67
[2019-11-08 16:00] VITALS: BP 151/91
[2019-11-08] MEDS ORDERED: ALENDRONATE SOD70 M1 PO (17:24)
[2019-11-08] MEDS ORDERED: BACITRACIN 500U30 GM OPH (17:25)
[2019-11-08] MEDS ORDERED: OYSTER SHELL 51 EAC2 PO (17:30)
[2019-11-08] MEDS ORDERED: SALINE NASAL SP88 ML NAS (17:30)
[2019-11-08 20:00] VITALS: BP 139/71
[2019-11-09] VITALS: BP 159/88
[2019-11-09 06:19] LABS: HEMATOCRIT 42.2 % (37.0-47.0); HEMOGLOBIN 12.9 g/dl (12.0-16.0); MEAN CELL VOLUME 98.4 fl (81.0-99.0); MEAN CORPUSCULAR HGB 30.1 pg (27.0-31.0); MEAN CORPUSCULAR HGB CONC 30.6 g/dl (33.0-37.0); MEAN PLATELET VOLUME 10.9 fl (9.6-12.3); PLATELET COUNT AUTOMATED 273 10*3/uL (130-400); RED BLOOD COUNT 4.29 10*6/uL (4.10-5.10); RED CELL DISTRI WIDTH 17.7 % (0-14.5); WHITE BLOOD COUNT 26.1 10*3/uL (4.8-10.8)
[2019-11-09 06:35] LABS: CREATININE 1.62 mg/dL (0.55-1.02); POTASSIUM 4.4 mmol/L (3.5-5.1)
[2019-11-09 07:04] LABS: BURR CELLS FEW; OVALOCYTES FEW; PLATELET SUFFICIENCY NORMAL (NORMAL); TOTAL CELLS COUNTED 100 #CELLS
[2019-11-09 08:00] VITALS: BP 116/64
[2019-11-09 12:00] VITALS: BP 108/60
[2019-11-09 16:00] VITALS: BP 110/62
[2019-11-09 20:00] VITALS: BP 149/71
[2019-11-10] VITALS: BP 145/85
[2019-11-10 08:00] VITALS: BP 149/77
== END 2019-11-10 13:28 | disposition hospice, home (50) | DRG 64 ==
LOC: ED 10:38 → EDHOLD 12:48 → 4E 12:48
PROVIDERS: Physician Assistant; ADMIT Internal Medicine
DX: I63.511 Cerebral infarction due to unspecified occlusion or stenosis of right middle cerebral artery (principal); J18.9 Pneumonia, unspecified organism; F33.0 Major depressive disorder, recurrent, mild; N39.0 Urinary tract infection, site not specified; I48.21 Permanent atrial fibrillation; Z68.1 Body mass index [BMI] 19.9 or less, adult; G81.94 Hemiplegia, unspecified affecting left nondominant side; Z66 Do not resuscitate; Z51.5 Encounter for palliative care; G30.1 Alzheimer's disease with late onset; F02.80 Dementia in other diseases classified elsewhere, unspecified severity, without behavioral disturbance, psychotic disturbance, mood disturbance, and anxiety; K59.09 Other constipation; B96.20 Unspecified Escherichia coli [E. coli] as the cause of diseases classified elsewhere; D50.9 Iron deficiency anemia, unspecified; I10 Essential (primary) hypertension; R62.7 Adult failure to thrive; R13.10 Dysphagia, unspecified; E78.5 Hyperlipidemia, unspecified; R32 Unspecified urinary incontinence; Z87.440 Personal history of urinary (tract) infections; Z79.899 Other long term (current) drug therapy; Z79.01 Long term (current) use of anticoagulants; Z82.49 Family history of ischemic heart disease and other diseases of the circulatory system; Z82.0 Family history of epilepsy and other diseases of the nervous system